=== PATIENT | female | born 1935 | race African-American/Black ===

== ENCOUNTER 2017-09-15 08:04 | Outpatient (CLI) | payer OTHER | END 2017-09-15 08:59 | disposition home or self-care (01) | LOC: LAB 08:04 | DX: D50.0 Iron deficiency anemia secondary to blood loss (chronic) (principal); D55.0 Anemia due to glucose-6-phosphate dehydrogenase [G6PD] deficiency; D51.8 Other vitamin B12 deficiency anemias; R97.0 Elevated carcinoembryonic antigen [CEA]; K51.011 Ulcerative (chronic) pancolitis with rectal bleeding; E08.65 Diabetes mellitus due to underlying condition with hyperglycemia; E03.8 Other specified hypothyroidism; D50.8 Other iron deficiency anemias; I10 Essential (primary) hypertension ==

== ENCOUNTER 2018-03-23 07:32 | Outpatient (CLI) | payer OTHER | END 2018-03-23 07:41 | disposition home or self-care (01) | LOC: LAB 07:32 | DX: D50.0 Iron deficiency anemia secondary to blood loss (chronic) (principal); D55.0 Anemia due to glucose-6-phosphate dehydrogenase [G6PD] deficiency; D51.8 Other vitamin B12 deficiency anemias; R97.0 Elevated carcinoembryonic antigen [CEA]; K51.011 Ulcerative (chronic) pancolitis with rectal bleeding; E08.65 Diabetes mellitus due to underlying condition with hyperglycemia; E03.8 Other specified hypothyroidism; I10 Essential (primary) hypertension; E55.9 Vitamin D deficiency, unspecified; K90.89 Other intestinal malabsorption ==

== ENCOUNTER 2018-05-26 07:46 | Outpatient (CLI) | payer OTHER | END 2018-05-26 07:51 | disposition home or self-care (01) | LOC: NUCLEAR 07:46 | DX: D50.0 Iron deficiency anemia secondary to blood loss (chronic) (principal); D55.0 Anemia due to glucose-6-phosphate dehydrogenase [G6PD] deficiency; D51.8 Other vitamin B12 deficiency anemias; R97.0 Elevated carcinoembryonic antigen [CEA]; K51.011 Ulcerative (chronic) pancolitis with rectal bleeding; E08.65 Diabetes mellitus due to underlying condition with hyperglycemia; E03.8 Other specified hypothyroidism | CPT/HCPCS: 78816; A9552 ==

== ENCOUNTER 2018-06-01 08:21 | Outpatient (CLI) | payer OTHER | END 2018-06-01 08:29 | disposition home or self-care (01) | LOC: LAB 08:21 | DX: D50.0 Iron deficiency anemia secondary to blood loss (chronic) (principal); D55.0 Anemia due to glucose-6-phosphate dehydrogenase [G6PD] deficiency; D51.8 Other vitamin B12 deficiency anemias; I71.2 Thoracic aortic aneurysm, without rupture; R97.0 Elevated carcinoembryonic antigen [CEA]; K51.011 Ulcerative (chronic) pancolitis with rectal bleeding; E08.65 Diabetes mellitus due to underlying condition with hyperglycemia; E03.8 Other specified hypothyroidism; D50.8 Other iron deficiency anemias; I10 Essential (primary) hypertension; D68.8 Other specified coagulation defects ==

== ENCOUNTER 2018-06-01 10:38 | Outpatient (CLI) | payer OTHER | END 2018-06-01 17:00 | disposition home or self-care (01) | LOC: TOM 10:38 | DX: I71.2 Thoracic aortic aneurysm, without rupture (principal); D50.0 Iron deficiency anemia secondary to blood loss (chronic); D55.0 Anemia due to glucose-6-phosphate dehydrogenase [G6PD] deficiency; D51.8 Other vitamin B12 deficiency anemias; R97.0 Elevated carcinoembryonic antigen [CEA]; K51.011 Ulcerative (chronic) pancolitis with rectal bleeding; E08.65 Diabetes mellitus due to underlying condition with hyperglycemia; E03.8 Other specified hypothyroidism | CPT/HCPCS: 71260; 74177; Q9965; 72191 ==

== ENCOUNTER 2018-10-13 08:35 | Outpatient (CLI) | payer OTHER | END 2018-10-13 09:03 | disposition home or self-care (01) | LOC: LAB 08:35 | DX: D50.0 Iron deficiency anemia secondary to blood loss (chronic) (principal); D55.0 Anemia due to glucose-6-phosphate dehydrogenase [G6PD] deficiency; D51.8 Other vitamin B12 deficiency anemias; I71.2 Thoracic aortic aneurysm, without rupture; R97.0 Elevated carcinoembryonic antigen [CEA]; K51.011 Ulcerative (chronic) pancolitis with rectal bleeding; E08.65 Diabetes mellitus due to underlying condition with hyperglycemia; E03.8 Other specified hypothyroidism; D50.8 Other iron deficiency anemias; I10 Essential (primary) hypertension; D68.8 Other specified coagulation defects ==

== ENCOUNTER 2019-01-03 07:48 | Outpatient (CLI) | payer OTHER | END 2019-01-03 15:00 | disposition home or self-care (01) | LOC: LAB 07:48 | DX: D50.0 Iron deficiency anemia secondary to blood loss (chronic) (principal); D55.0 Anemia due to glucose-6-phosphate dehydrogenase [G6PD] deficiency; D51.8 Other vitamin B12 deficiency anemias; I71.2 Thoracic aortic aneurysm, without rupture; R97.0 Elevated carcinoembryonic antigen [CEA]; K51.011 Ulcerative (chronic) pancolitis with rectal bleeding; E08.65 Diabetes mellitus due to underlying condition with hyperglycemia; E03.8 Other specified hypothyroidism; D50.8 Other iron deficiency anemias; I10 Essential (primary) hypertension ==

== ENCOUNTER 2019-06-15 08:03 | Outpatient (CLI) | payer OTHER | END 2019-06-15 08:08 | disposition home or self-care (01) | LOC: LAB 08:03 | DX: E11.9 Type 2 diabetes mellitus without complications (principal); I10 Essential (primary) hypertension; E03.8 Other specified hypothyroidism; E78.2 Mixed hyperlipidemia ==

== ENCOUNTER 2019-10-18 07:46 | Outpatient (CLI) | payer OTHER | END 2019-10-18 07:54 | disposition home or self-care (01) | LOC: LAB 07:46 | DX: I10 Essential (primary) hypertension (principal); E03.8 Other specified hypothyroidism; D50.8 Other iron deficiency anemias; D50.0 Iron deficiency anemia secondary to blood loss (chronic); D55.0 Anemia due to glucose-6-phosphate dehydrogenase [G6PD] deficiency; D51.8 Other vitamin B12 deficiency anemias; I71.2 Thoracic aortic aneurysm, without rupture; R97.0 Elevated carcinoembryonic antigen [CEA]; K51.011 Ulcerative (chronic) pancolitis with rectal bleeding; E08.65 Diabetes mellitus due to underlying condition with hyperglycemia; E55.9 Vitamin D deficiency, unspecified ==

== ENCOUNTER → 2020-02-06 07:55 | Outpatient (CLI) | payer OTHER | END | disposition home or self-care (01) | LOC: LAB 07:55 | PROVIDERS: ATTEND Internal Medicine Cardiovascular Disease | DX: I10 Essential (primary) hypertension (principal); E03.8 Other specified hypothyroidism; D50.8 Other iron deficiency anemias; D51.8 Other vitamin B12 deficiency anemias; E55.9 Vitamin D deficiency, unspecified; R97.0 Elevated carcinoembryonic antigen [CEA]; R97.8 Other abnormal tumor markers; D50.0 Iron deficiency anemia secondary to blood loss (chronic); D55.0 Anemia due to glucose-6-phosphate dehydrogenase [G6PD] deficiency; I71.2 Thoracic aortic aneurysm, without rupture; K51.011 Ulcerative (chronic) pancolitis with rectal bleeding; E08.65 Diabetes mellitus due to underlying condition with hyperglycemia ==

== ENCOUNTER 2020-05-31 08:11 | Outpatient (CLI) | payer OTHER | END 2020-05-31 08:18 | disposition home or self-care (01) | LOC: LAB 08:11 | PROVIDERS: ATTEND Internal Medicine Cardiovascular Disease | DX: E03.8 Other specified hypothyroidism (principal); I10 Essential (primary) hypertension; E11.9 Type 2 diabetes mellitus without complications; E78.2 Mixed hyperlipidemia ==